=== PATIENT | female | born 1995 | race Caucasian/White ===

== ENCOUNTER 2016-11-27 13:19 | Inpatient (IN) | payer MEDICAID ==
[~2016-11-27] VITALS: Ht 157.5 cm; Wt 66.8 kg
[2016-11-27] MEDS ORDERED: LIDOCAINE 1%, 20ML ONE (13:40)
[2016-11-27] MEDS ORDERED: MISOPROSTOL 200 MCG TABLET ONE (13:40)
[2016-11-27] MEDS ORDERED: NEWBORN KIT ONE (13:41)
[2016-11-27] MEDS ORDERED: OXYTOCIN 30U/ 0.9% NaCL 500ML 500 ML ONE ×2 (13:41→20:22)
[2016-11-27 13:47] VITALS: BP 120/78
[2016-11-27] MEDS ORDERED: OXYTOCIN 30U/ 0.9% NaCL 500ML 500 ML IV ONE (15:31)
[2016-11-27] MEDS ORDERED: FENTANYL PF 100 MCG/2ML IVPush PRN (16:00)
[2016-11-27] MEDS ORDERED: FENTANYL PF 100 MCG/2ML IV PRN (16:00)
[2016-11-27] MEDS ORDERED: ONDANSETRON 2MG/ML, 2ML IVPush PRN (16:00)
[2016-11-27] MEDS: LACTATED RINGERS 1,000 ML IV SCH ×2 (16:27→16:52)
[2016-11-27 16:28] LABS: HEMOGLOBIN 12.2 g/dL (11.7-16.4)
[2016-11-27] MEDS ORDERED: FENTANYL/BUPIV./NS/PF 250 ML EPIDCONT ONE (16:56)
[2016-11-27] MEDS ORDERED: LACTATED RINGERS 1,000 ML IV SCH (17:19)
[2016-11-27] MEDS ORDERED: FENTANYL/BUPIV./NS/PF 250 ML EPIDCONT SCH (17:19)
[2016-11-27] MEDS ORDERED: LACTATED RINGERS 1,000 ML IVBOLUS PRN (17:30)
[2016-11-27] MEDS ORDERED: FENTANYL PF 100 MCG/2ML ONE (18:23)
[2016-11-27] MEDS ORDERED: D5%-LACTATED RINGERS 1,000 ML IV SCH (19:19)
[2016-11-27] MEDS ORDERED: METHYLERGONOVINE 0.2 MG/ML IM PRN (22:00)
[2016-11-27] MEDS ORDERED: ONDANSETRON 2MG/ML, 2ML IV PRN (22:00)
[2016-11-27] MEDS ORDERED: OXYcodone/APAP 5/325MG TABLET PO PRN (22:00)
[2016-11-27] MEDS ORDERED: MISOPROSTOL 200 MCG TABLET PR PRN (22:00)
[2016-11-27] MEDS: OXYTOCIN 30U/ 0.9% NaCL 500ML 500 ML IV SCH (22:05)
[2016-11-27] MEDS ORDERED: IBUPROFEN 600 MG TABLET ONE (22:53)
[2016-11-27] MEDS: IBUPROFEN 600 MG TABLET PO PRN (22:55)
[2016-11-27 23:50] VITALS: BP 114/77
[2016-11-28 03:45] VITALS: BP 101/61
[2016-11-28 07:20] VITALS: BP 110/73
[2016-11-28] MEDS: OXYTOCIN 30U/ 0.9% NaCL 500ML 500 ML IV SCH ×2 (07:38→17:38)
[2016-11-28 08:13] LABS: HEMOGLOBIN 10.9 g/dL (11.7-16.4)
[2016-11-28] MEDS: PRENATAL VIT/IRON/FA 1 EACH TABLET PO SCH (08:34)
[2016-11-28] MEDS: IBUPROFEN 600 MG TABLET PO PRN ×3 (08:34→21:32)
[2016-11-28] MEDS: DOCUSATE 100 MG CAPSULE PO PRN ×2 (08:34→19:36)
[2016-11-28 13:00] VITALS: BP 103/64
[2016-11-28] MEDS: OXYcodone/APAP 5/325MG TABLET PO PRN ×2 (15:11→19:36)
[2016-11-28 16:30] VITALS: BP 109/64
[2016-11-28 20:30] VITALS: BP 99/61
[2016-11-29] MEDS ORDERED: IBUP-1222 PO (02:37)
[2016-11-29] MEDS: OXYcodone/APAP 5/325MG TABLET PO PRN ×3 (02:54→13:11)
[2016-11-29] MEDS: OXYTOCIN 30U/ 0.9% NaCL 500ML 500 ML IV SCH (03:38)
[2016-11-29] MEDS: PRENATAL VIT/IRON/FA 1 EACH TABLET PO SCH (07:36)
[2016-11-29] MEDS: IBUPROFEN 600 MG TABLET PO PRN (07:36)
[2016-11-29] MEDS: DOCUSATE 100 MG CAPSULE PO PRN (07:36)
[2016-11-29 07:45] VITALS: BP 105/68
[2016-11-29] MEDS ORDERED: OXYC-302 PO (10:43)
[2016-11-29] MEDS ORDERED: DOCU-30 PO (10:44)
[2016-11-29] MEDS ORDERED: PREN-53 PO (11:11)
== END 2016-11-29 13:21 | disposition home or self-care (01) | DRG 775 ==
LOC: LDOP 13:19 → LDIP 13:50 → 2NW 23:37
PROVIDERS: ADMIT Obstetrics & Gynecology; ATTEND Obstetrics & Gynecology
PROC: 10E0XZZ Delivery of Products of Conception, External Approach (ICD-10-PCS; principal; 2016-11-27)
PROC: 10907ZC Drainage of Amniotic Fluid, Therapeutic from Products of Conception, Via Natural or Artificial Opening (ICD-10-PCS; 2016-11-27)
PROC: 00HU33Z Insertion of Infusion Device into Spinal Canal, Percutaneous Approach (ICD-10-PCS; 2016-11-27)
PROC: 3E0R3CZ (ICD-10-PCS; 2016-11-27)
PROC: 0T9B70Z Drainage of Bladder with Drainage Device, Via Natural or Artificial Opening (ICD-10-PCS; 2016-11-27)
DX: O32.6XX0 Maternal care for compound presentation, not applicable or unspecified (principal); Z37.0 Single live birth; Z3A.39 39 weeks gestation of pregnancy; O70.1 Second degree perineal laceration during delivery
CPT/HCPCS: 36415; 81001; 85025; 86850; 86900; J2590; J7120; J7121

== ENCOUNTER 2018-08-03 09:07 | Outpatient (CLI) | payer SELFPAY ==
[~2018-08-03] VITALS: Ht 157.5 cm; Wt 70.5 kg
[~2018-08-03 09:07] MED LIST: DOCU-131 PO; IBUP-1222 PO; OXYC-302 PO; PREN-53 PO
[2018-08-03 09:20] VITALS: BP 107/71
== END 2018-08-03 10:15 | disposition home or self-care (01) ==
LOC: LDOP 09:07
PROVIDERS: ATTEND Obstetrics & Gynecology
DX: O26.893 Other specified pregnancy related conditions, third trimester (principal); Z3A.34 34 weeks gestation of pregnancy
CPT/HCPCS: 59025; 99211; G0463

== ENCOUNTER 2018-08-09 21:47 | Outpatient (CLI) | payer OTHER ==
[2018-08-09 22:39] LABS: MICROSCOPIC INDICATED
== END 2018-08-10 00:12 | disposition home or self-care (01) ==
LOC: LDOP 21:47
PROVIDERS: ATTEND Obstetrics & Gynecology
DX: Z34.83 Encounter for supervision of other normal pregnancy, third trimester (principal); Z3A.34 34 weeks gestation of pregnancy
CPT/HCPCS: 59025; 81001; 87086; 99211; G0463

== ENCOUNTER 2018-08-24 10:55 | Outpatient (CLI) | payer OTHER ==
[~2018-08-24] VITALS: Ht 157.5 cm; Wt 73.2 kg
== END 2018-08-24 13:17 | disposition home or self-care (01) ==
LOC: LDOP 10:55
PROVIDERS: ATTEND Obstetrics & Gynecology
DX: O30.033 Twin pregnancy, monochorionic/diamniotic, third trimester (principal); O32.1XX0 Maternal care for breech presentation, not applicable or unspecified; Z3A.37 37 weeks gestation of pregnancy
CPT/HCPCS: 59025; 76819; 99211; G0463

== ENCOUNTER 2018-08-25 07:31 | Inpatient (IN) | payer OTHER ==
[~2018-08-25] VITALS: Ht 157.5 cm; Wt 73.2 kg
[2018-08-25] MEDS ORDERED: LACTATED RINGERS 1,000 ML IV SCH ×2 (07:36→08:00)
[2018-08-25] MEDS ORDERED: OXYTOCIN 30U/ 0.9% NaCL 500ML 500 ML IV SCH (07:36)
[2018-08-25] MEDS ORDERED: SODIUM CITRATE/CITRIC ACID 30 ML UDC ONE (07:52)
[2018-08-25] MEDS ORDERED: METOCLOPRAMIDE 5 MG/ML, 2ML ONE (07:53)
[2018-08-25] MEDS ORDERED: OXYTOCIN 30U/ 0.9% NaCL 500ML 500 ML ONE (07:53)
[2018-08-25] MEDS ORDERED: SODIUM CITRATE/CITRIC ACID 30 ML UDC PO ONE (08:00)
[2018-08-25] MEDS ORDERED: METOCLOPRAMIDE 5 MG/ML, 2ML IV ONE (08:00)
[2018-08-25] MEDS ORDERED: PLEASE ENTER HEIGHT AND WEIGHT MC SCH ×2 (08:00→12:00)
[2018-08-25] MEDS ORDERED: LACTATED RINGERS 1,000 ML IVBOLUS ONE (08:00)
[2018-08-25 08:16] LABS: BASOPHILS # (AUTO) 0.07 x10^3/uL (0-0.1); BASOPHILS % (AUTO) 1 % (0-1); EOSINOPHILS # (AUTO) 0.03 x10^3/uL (0-0.4); EOSINOPHILS % (AUTO) 0 % (1-7); LYMPHOCYTES # (AUTO) 1.53 x10^3/uL (1-3.4); LYMPHOCYTES % (AUTO) 15 % (22-44); MD NO; MEAN CORPUSCULAR HEMOGLOBIN 29.7 pg (27.0-34.8); MEAN CORPUSCULAR HGB CONC 34.2 g/dL (32.4-35.8); MEAN CORPUSCULAR VOLUME 86.8 fL (80-100); MEAN PLATELET VOLUME 8.3 fL (7.4-10.4); MONOCYTES # (AUTO) 0.63 x10^3/uL (0.2-0.8); MONOCYTES % (AUTO) 6 % (2-9); NEUTROPHILS # (AUTO) 7.95 x10^3/uL (1.8-6.8); NEUTROPHILS % (AUTO) 78 % (42-75); PLATELET COUNT 152 x10^3/uL (130-400); RED BLOOD COUNT 4.01 x10^6/uL (3.82-5.3); RED CELL DISTRIBUTION WIDTH 13.7 % (9.6-15.2)
[2018-08-25] MEDS ORDERED: CEFAZOLIN 1,000 MG ONE (09:26)
[2018-08-25] MEDS ORDERED: ONDANSETRON 2MG/ML, 2ML ONE (09:26)
[2018-08-25] MEDS ORDERED: PHENYLEPHRINE 10 MG/ML ONE (09:26)
[2018-08-25] MEDS ORDERED: FENTANYL PF 100 MCG/2ML ONE (09:26)
[2018-08-25] MEDS ORDERED: EPHEDRINE 50 MG/ML, 1ML ONE (09:26)
[2018-08-25] MEDS ORDERED: OXYTOCIN 10 UNITS/ML, 1ML ONE (09:26)
[2018-08-25] MEDS ORDERED: KETOROLAC 30 MG/1 ML ONE (09:26)
[2018-08-25] MEDS ORDERED: DEXAMETHASONE 4 MG/ML, 1ML ONE (09:26)
[2018-08-25] MEDS ORDERED: FENTANYL PF 100 MCG/2ML IV PRN (09:30)
[2018-08-25] MEDS ORDERED: hydrALAzine 20 MG/ML, 1ML IV PRN (09:30)
[2018-08-25] MEDS ORDERED: PROMETHAZINE 25 MG/ML, 1ML IV PRN (09:30)
[2018-08-25] MEDS ORDERED: HYDROmorphone 1 MG/ML, 1ML IV PRN (09:30)
[2018-08-25] MEDS ORDERED: ALBUTEROL SULFATE 2.5 MG/3 ML NPPB PRN (09:30)
[2018-08-25] MEDS ORDERED: LABETALOL 5MG/ML, 20ML IV PRN (09:30)
[2018-08-25] MEDS ORDERED: EPHEDRINE 50 MG/ML, 1ML IVPush PRN (09:30)
[2018-08-25] MEDS ORDERED: ALBUTEROL/IPRATROPIUM 2.5MG/0.5MG, 3 ML NPPB PRN (09:30)
[2018-08-25] MEDS ORDERED: MEPERIDINE/PF 25MG/0.5ML IVPush PRN (09:30)
[2018-08-25] MEDS ORDERED: OXYcodone 5 MG/5 ML ORAL.SOL UDC PO PRN (09:30)
[2018-08-25] MEDS ORDERED: HYDROcodone/APAP 7.5-325MG/15ML UDC PO PRN (09:30)
[2018-08-25] MEDS ORDERED: ONDANSETRON 2MG/ML, 2ML IVPush PRN (09:30)
[2018-08-25] MEDS ORDERED: MIDAZOLAM 1 MG/ML, 2ML IV PRN (09:30)
[2018-08-25] MEDS ORDERED: NEWBORN KIT ONE (09:52)
[2018-08-25] MEDS: OXYTOCIN 30U/ 0.9% NaCL 500ML 500 ML IV SCH ×2 (11:25→21:25)
[2018-08-25] MEDS: LACTATED RINGERS 1,000 ML IV SCH ×5 (11:25→23:45)
[2018-08-25] MEDS ORDERED: morphine SULFATE 10 MG/ML, 1ML IVPush PRN ×2 (11:30)
[2018-08-25] MEDS ORDERED: ONDANSETRON 2MG/ML, 2ML IV PRN (11:30)
[2018-08-25] MEDS ORDERED: MISOPROSTOL 200 MCG TABLET PR PRN (11:30)
[2018-08-25] MEDS: KETOROLAC 30 MG/1 ML IV SCH ×3 (11:30→23:45)
[2018-08-25] MEDS ORDERED: OXYcodone IR 5MG TABLET PO PRN (11:30)
[2018-08-25] MEDS ORDERED: SIMETHICONE 80 MG CHEW TAB PO PRN (11:30)
[2018-08-25] MEDS ORDERED: CALCIUM CARBONATE 500 MG TAB.CHEW PO PRN (11:30)
[2018-08-25] MEDS ORDERED: IBUPROFEN 600 MG TABLET PO SCH (11:30)
[2018-08-25] MEDS ORDERED: METHYLERGONOVINE 0.2 MG/ML IM ONE (12:02)
[2018-08-25] MEDS ORDERED: MISOPROSTOL 200 MCG TABLET ONE (12:02)
[2018-08-25 13:25] VITALS: BP 130/81
[2018-08-25] MEDS: ACETAMINOPHEN 325 MG TABLET PO SCH ×2 (14:11→20:04)
[2018-08-25 16:06] VITALS: BP 128/85
[2018-08-25 19:09] LABS: BASOPHILS % (AUTO) 0 % (0-1); EOSINOPHILS % (AUTO) 0 % (1-7); LYMPHOCYTES # (AUTO) 0.91 x10^3/uL (1-3.4); LYMPHOCYTES % (AUTO) 7 % (22-44); MD NO; MEAN CORPUSCULAR HEMOGLOBIN 30.9 pg (27.0-34.8); MEAN CORPUSCULAR HGB CONC 35.5 g/dL (32.4-35.8); MEAN CORPUSCULAR VOLUME 87.1 fL (80-100); MEAN PLATELET VOLUME 8.8 fL (7.4-10.4); MONOCYTES % (AUTO) 6 % (2-9); NEUTROPHILS # (AUTO) 11.07 x10^3/uL (1.8-6.8); NEUTROPHILS % (AUTO) 87 % (42-75); PLATELET COUNT 136 x10^3/uL (130-400); RED BLOOD COUNT 3.26 x10^6/uL (3.82-5.3); RED CELL DISTRIBUTION WIDTH 13.5 % (9.6-15.2)
[2018-08-25 19:30] VITALS: BP 116/76
[2018-08-25] MEDS: DOCUSATE 100 MG CAPSULE PO SCH (20:04)
[2018-08-25] MEDS: OXYcodone IR 5MG TABLET PO PRN (21:12)
[2018-08-26 00:01] VITALS: BP 122/80
[2018-08-26] MEDS: ACETAMINOPHEN 325 MG TABLET PO SCH ×4 (02:12→19:37)
[2018-08-26] MEDS: OXYcodone IR 5MG TABLET PO PRN ×4 (02:51→19:37)
[2018-08-26 04:40] VITALS: BP 111/75
[2018-08-26] MEDS: KETOROLAC 30 MG/1 ML IV SCH (05:48)
[2018-08-26 07:05] VITALS: BP 104/67
[2018-08-26] MEDS: LACTATED RINGERS 1,000 ML IV SCH ×4 (07:25→19:25)
[2018-08-26] MEDS: OXYTOCIN 30U/ 0.9% NaCL 500ML 500 ML IV SCH ×2 (07:25→17:25)
[2018-08-26] MEDS: PRENATAL VIT/IRON/FA 1 EACH TABLET PO SCH (07:39)
[2018-08-26] MEDS: DOCUSATE 100 MG CAPSULE PO SCH ×2 (07:39→19:37)
[2018-08-26] MEDS: IBUPROFEN 600 MG TABLET PO SCH ×3 (11:51→23:33)
[2018-08-26 19:00] VITALS: BP 111/67
[2018-08-27] MEDS: OXYcodone IR 5MG TABLET PO PRN (00:57)
[2018-08-27] MEDS: ACETAMINOPHEN 325 MG TABLET PO SCH ×2 (02:10→08:17)
[2018-08-27] MEDS: OXYTOCIN 30U/ 0.9% NaCL 500ML 500 ML IV SCH (03:25)
[2018-08-27] MEDS: LACTATED RINGERS 1,000 ML IV SCH ×2 (03:25)
[2018-08-27] MEDS: IBUPROFEN 600 MG TABLET PO SCH ×2 (05:33→11:44)
[2018-08-27 07:35] VITALS: BP 114/76
[2018-08-27] MEDS: DOCUSATE 100 MG CAPSULE PO SCH (08:17)
[2018-08-27] MEDS: PRENATAL VIT/IRON/FA 1 EACH TABLET PO SCH (08:17)
[2018-08-27] MEDS ORDERED: IBUP-1222 PO (10:40)
[2018-08-27] MEDS ORDERED: OXYC-302 PO (10:40)
[2018-08-27] MEDS ORDERED: DOCU-131 PO (10:40)
== END 2018-08-27 15:40 | disposition home or self-care (01) | DRG 788 ==
LOC: LDIP 07:31 → 2NW 13:25
PROVIDERS: ADMIT Obstetrics & Gynecology; ATTEND Obstetrics & Gynecology
PROC: 10D00Z1 Extraction of Products of Conception, Low, Open Approach (ICD-10-PCS; principal; 2018-08-25)
DX: O30.033 Twin pregnancy, monochorionic/diamniotic, third trimester (principal); O32.1XX1 Maternal care for breech presentation, fetus 1; O32.2XX2 Maternal care for transverse and oblique lie, fetus 2; Z37.2 Twins, both liveborn; Z3A.37 37 weeks gestation of pregnancy
CPT/HCPCS: 36415; 85025; 86850; 86900; 88307; G0378; J0690; J1100; J1885; J2405; J3010; J2370; J2590; J2765; J7120

== ENCOUNTER 2020-11-13 05:59 | Inpatient (IN) | payer MEDICAID, OTHER ==
[~2020-11-13] VITALS: Ht 157.5 cm; Wt 73.0 kg
[~2020-11-13 05:59] MED LIST changes: -OXYC-302 PO; +OXYC1TAB14 PO
[2020-11-13] MEDS ORDERED: OXYTOCIN 30U/ 0.9% NaCL 500ML 500 ML ONE ×2 (06:18→10:51)
[2020-11-13] MEDS ORDERED: NEWBORN KIT ONE (06:18)
[2020-11-13] MEDS ORDERED: TERBUTALINE 1 MG/ML, 1ML IVPush PRN (06:30)
[2020-11-13] MEDS: PLEASE ENTER HEIGHT AND WEIGHT MC SCH ×3 (06:30→22:30)
[2020-11-13] MEDS ORDERED: SODIUM CITRATE/CITRIC ACID 30 ML UDC PO PRN (06:30)
[2020-11-13] MEDS ORDERED: FENTANYL PF 100 MCG/2ML IVPush PRN (06:30)
[2020-11-13] MEDS ORDERED: ONDANSETRON 2MG/ML, 2ML IVPush PRN ×2 (06:30→07:30)
[2020-11-13] MEDS ORDERED: OXYTOCIN 30U/ 0.9% NaCL 500ML 500 ML IV ONE (06:30)
[2020-11-13] MEDS ORDERED: FENTANYL PF 100 MCG/2ML IV PRN ×2 (06:30→07:30)
[2020-11-13] MEDS ORDERED: D5%-LACTATED RINGERS 1,000 ML IV SCH (06:30)
[2020-11-13] MEDS ORDERED: TERBUTALINE 1 MG/ML, 1ML SQ PRN (06:30)
[2020-11-13] MEDS ORDERED: CALCIUM CARBONATE 500 MG TAB.CHEW PO PRN ×2 (06:30→10:30)
[2020-11-13] MEDS ORDERED: OXYTOCIN 30U/ 0.9% NaCL 500ML 500 ML IV PRN (06:30)
[2020-11-13] MEDS ORDERED: MISOPROSTOL 200 MCG TABLET ONE (06:33)
[2020-11-13] MEDS: LACTATED RINGERS 1,000 ML IV SCH ×4 (06:42→17:00)
[2020-11-13 06:45] VITALS: BP 114/76
[2020-11-13 06:54] LABS: BASOPHILS % (AUTO) 1 % (0-1); EOSINOPHILS % (AUTO) 1 % (1-7); LYMPHOCYTES % (AUTO) 18 % (22-44); MEAN CORPUSCULAR HEMOGLOBIN 27.8 pg (27.0-34.8); MEAN PLATELET VOLUME 8.8 fL (7.4-10.4); MONOCYTES % (AUTO) 7 % (2-9); NEUTROPHILS % (AUTO) 74 % (42-75); PLATELET COUNT 148 x10^3/uL (130-400); RED BLOOD COUNT 4.24 x10^6/uL (3.82-5.3); RED CELL DISTRIBUTION WIDTH 14.5 % (9.6-15.2)
[2020-11-13 06:55] LABS: MD NO
[2020-11-13] MEDS ORDERED: MEPERIDINE/PF 25MG/0.5ML IVPush PRN (07:30)
[2020-11-13] MEDS ORDERED: hydrALAzine 20 MG/ML, 1ML IV PRN (07:30)
[2020-11-13] MEDS ORDERED: EPHEDRINE 50 MG/ML, 1ML IVPush PRN (07:30)
[2020-11-13] MEDS ORDERED: PROMETHAZINE 25 MG/ML, 1ML IV PRN (07:30)
[2020-11-13] MEDS ORDERED: HYDROmorphone 2 MG/ML, 1ML IVPush PRN (07:30)
[2020-11-13] MEDS ORDERED: HYDROcodone/APAP 7.5-325MG/15ML UDC PO PRN (07:30)
[2020-11-13] MEDS ORDERED: ALBUTEROL SULFATE 2.5 MG/3 ML NPPB PRN (07:30)
[2020-11-13] MEDS ORDERED: METOPROLOL 1 MG/ML, 5ML IV PRN (07:30)
[2020-11-13] MEDS ORDERED: LABETALOL 5MG/ML, 20ML IV PRN (07:30)
[2020-11-13] MEDS ORDERED: OXYcodone 5 MG/5 ML ORAL.SOL UDC PO PRN (07:30)
[2020-11-13] MEDS ORDERED: MIDAZOLAM 1 MG/ML, 2ML IV PRN (07:30)
[2020-11-13] MEDS ORDERED: FENTANYL/BUPIV./NS/PF 250 ML EPIDCONT ONE (09:00)
[2020-11-13] MEDS ORDERED: LACTATED RINGERS 1,000 ML IVBOLUS PRN (09:00)
[2020-11-13] MEDS ORDERED: FENTANYL/BUPIV./NS/PF 250 ML EPIDCONT SCH (09:00)
[2020-11-13] MEDS ORDERED: NALOXONE 0.4 MG/ML, 1ML IVPush PRN (09:00)
[2020-11-13] MEDS ORDERED: BUPIVACAINE 0.25% ONE (09:01)
[2020-11-13] MEDS: OXYTOCIN 30U/ 0.9% NaCL 500ML 500 ML IV SCH ×7 (10:30→19:08)
[2020-11-13] MEDS ORDERED: ACETAMINOPHEN 325 MG TABLET PO PRN ×2 (10:30)
[2020-11-13] MEDS ORDERED: SIMETHICONE 80 MG CHEW TAB PO PRN (10:30)
[2020-11-13] MEDS ORDERED: ONDANSETRON 2MG/ML, 2ML IV PRN (10:30)
[2020-11-13] MEDS ORDERED: MISOPROSTOL 200 MCG TABLET PR PRN (10:30)
[2020-11-13] MEDS ORDERED: HYDROcodone/APAP 5/325 TABLET PO PRN ×2 (10:30)
[2020-11-13] MEDS ORDERED: BISACODYL 10 MG SUPP PR PRN (10:30)
[2020-11-13] MEDS: IBUPROFEN 600 MG TABLET PO PRN ×3 (10:50→23:51)
[2020-11-13] MEDS ORDERED: IBUPROFEN 600 MG TABLET ONE (10:51)
[2020-11-13 17:09] LABS: BASOPHILS % (AUTO) 0 % (0-1); EOSINOPHILS % (AUTO) 0 % (1-7); LYMPHOCYTES % (AUTO) 12 % (22-44); MEAN CORPUSCULAR HEMOGLOBIN 27.9 pg (27.0-34.8); MEAN PLATELET VOLUME 9.1 fL (7.4-10.4); MONOCYTES % (AUTO) 7 % (2-9); NEUTROPHILS % (AUTO) 81 % (42-75); PLATELET COUNT 135 x10^3/uL (130-400); RED BLOOD COUNT 3.81 x10^6/uL (3.82-5.3); RED CELL DISTRIBUTION WIDTH 14.3 % (9.6-15.2)
[2020-11-13 17:16] LABS: MD NO
[2020-11-13 20:10] VITALS: BP 107/70
[2020-11-13] MEDS: DOCUSATE 100 MG CAPSULE PO PRN (23:51)
[2020-11-14] VITALS: BP 93/55
[2020-11-14] MEDS: LACTATED RINGERS 1,000 ML IV SCH (00:50)
[2020-11-14 04:22] VITALS: BP 100/62
[2020-11-14] MEDS: OXYTOCIN 30U/ 0.9% NaCL 500ML 500 ML IV SCH ×2 (05:57→07:12)
[2020-11-14] MEDS: PLEASE ENTER HEIGHT AND WEIGHT MC SCH (05:57)
[2020-11-14] MEDS: IBUPROFEN 600 MG TABLET PO PRN (07:17)
[2020-11-14] MEDS: DOCUSATE 100 MG CAPSULE PO PRN (07:17)
[2020-11-14 07:21] VITALS: BP 101/69
[2020-11-14] MEDS ORDERED: PRENATAL VIT/IRON/FA 1 EACH TABLET PO SCH (09:00)
[2020-11-14] MEDS ORDERED: IBUP-1222 PO (11:18)
[2020-11-14] MEDS ORDERED: DOCU-131 PO (11:18)
== END 2020-11-14 13:26 | disposition home or self-care (01) | DRG 806 ==
LOC: LDIP 05:59 → 2NW 12:20
PROVIDERS: ADMIT Obstetrics & Gynecology; ATTEND Obstetrics & Gynecology
PROC: 10E0XZZ Delivery of Products of Conception, External Approach (ICD-10-PCS; principal; 2020-11-13)
PROC: 0KQM0ZZ Repair Perineum Muscle, Open Approach (ICD-10-PCS; 2020-11-13)
PROC: 3E0R3BZ Introduction of Anesthetic Agent into Spinal Canal, Percutaneous Approach (ICD-10-PCS; 2020-11-13)
PROC: 00HU33Z Insertion of Infusion Device into Spinal Canal, Percutaneous Approach (ICD-10-PCS; 2020-11-13)
DX: O69.1XX0 Labor and delivery complicated by cord around neck, with compression, not applicable or unspecified (principal); Q21.0 Ventricular septal defect; Z37.0 Single live birth; O34.211 Maternal care for low transverse scar from previous cesarean delivery; O36.5930 Maternal care for other known or suspected poor fetal growth, third trimester, not applicable or unspecified; O70.1 Second degree perineal laceration during delivery; Z20.822 Contact with and (suspected) exposure to COVID-19; Z3A.38 38 weeks gestation of pregnancy; Z80.0 Family history of malignant neoplasm of digestive organs; Z80.3 Family history of malignant neoplasm of breast; Z82.3 Family history of stroke; Z82.49 Family history of ischemic heart disease and other diseases of the circulatory system
CPT/HCPCS: 36415; 85025; 86592; 86850; 86900; 87635; G0378; J2590; J3010; J7120